=== PATIENT | female | born 1940 | race Caucasian/White ===

== ENCOUNTER 2022-01-26 12:30 | Emergency (ER) | payer MEDICARE ==
[~2022-01-26 12:30] MED LIST: ASPIRIN EC81 MG PO; COLESTID 1GM TAB1 GM PO; COZAAR50 MG PO; GLUCOTROL10 MG PO; HCTZ25 MG PO; JANUVIA50 MG PO; LACTINEX1 EACH PO; MELATONIN5 M2 PO; MICON-GUARD 2% TOP; MOBIC7.5 MG PO; OMEPRAZOLE40 MG PO; OXYCODONE-ACET1 EAC1 PO; PROZAC20 MG PO; ULTRA-LIGHT RO1 EACH XX; ZOCOR20 MG PO
[2022-01-26] MEDS ORDERED: CEPHALEXIN500 MG PO (15:30)
== END 2022-01-26 16:10 | disposition home or self-care (01) ==
LOC: FER 12:30
DX: S81.812A Laceration without foreign body, left lower leg, initial encounter (principal); E11.9 Type 2 diabetes mellitus without complications; Z79.4 Long term (current) use of insulin; W20.8XXA Other cause of strike by thrown, projected or falling object, initial encounter; Y92.512 Supermarket, store or market as the place of occurrence of the external cause
CPT/HCPCS: 73590